=== PATIENT | female | born 1980 | race Caucasian/White ===

== ENCOUNTER 2017-02-11 03:15 | Emergency (ER) | payer OTHER ==
[2017-02-11] MEDS ORDERED: Sodium Chloride 0.9% 1,000 ML IV ONE (04:18)
[2017-02-11] MEDS ORDERED: Belladonna-Phenobarbital PO STA (04:18)
[2017-02-11] MEDS ORDERED: Belladonna-Phenobarbital ONE (04:24)
[2017-02-11 04:27] LABS: BASO % 0.3 % (0.0-2.0); EOS # 0.1 K/uL (0.0-0.7); EOS % 1.2 % (0.0-4.0); HEMATOCRIT 38.9 % (34.0-47.0); LYMPH # 2.4 K/uL (1.0-4.3); LYMPH % 29.7 % (20.0-40.0); MEAN CELL VOLUME 88.9 fL (81.0-99.0); MEAN CORPUSCULAR HEMOGLOBIN 30.1 pg (27.0-31.0); MEAN CORPUSCULAR HGB CONC 33.8 g/dL (33.0-37.0); MEAN PLATELET VOLUME 10.1 fL (7.2-11.7); MONO # 0.6 K/uL (0.0-0.8); RED CELL DISTRIBUTION WIDTH 13.8 % (11.5-14.5); WHITE BLOOD COUNT 7.9 K/uL (4.8-10.8)
[2017-02-11 04:35] LABS: CHLORIDE 101 mmol/L (98-107); SODIUM 138 mmol/L (132-148)
[2017-02-11 04:36] LABS: POTASSIUM 3.6 mmol/L (3.6-5.2)
[2017-02-11 04:37] LABS: GFR AFRICAN-AMERICAN > 60
[2017-02-11 04:38] LABS: ALB/GLOB RATIO 1.2 (1.0-2.1); ALKALINE PHOSPHATASE 53 U/L (38-126); ALT/SGPT 24 U/L (9-52); AST/SGOT 19 U/L (14-36); BILIRUBIN,TOTAL 0.6 mg/dL (0.2-1.3); BLOOD UREA NITROGEN 14 mg/dL (7-17); CALCIUM 9.1 mg/dl (8.6-10.4); CARBON DIOXIDE 26 mmol/L (22-30); GLUCOSE,RANDOM 93 mg/dL (65-105); TOTAL PROTEIN 7.5 g/dL (6.3-8.3)
[2017-02-11 04:45] LABS: RBC URINE 7 /hpf (0-3); URINE BILIRUBIN NEGATIVE (NEGATIVE); URINE BLOOD 1+ (NEGATIVE); URINE COLOR Yellow (YELLOW); URINE GLUCOSE (UA) NORMAL (Normal); URINE KETONE NEGATIVE (NEGATIVE); URINE LEUKOCYTE ESTERASE NEG Leu/uL (Negative); URINE PROTEIN NEGATIVE (NEGATIVE); URINE UROBILINOGEN NORMAL mg/dL (0.2-1.0); WBC URINE 2 /hpf (0-5)
--- NOTE | 2017-02-11 05:02 | C.PDOC ---
History Of Present Illness 36 year old female presents to the ED with complaints of epigastric pain since 10 pm that became diffuse "crampy" pain with associated nausea and one episode of vomiting after eating shrimp at dinner today. Patient reports nausea and acidic taste to mouth . She denies any dysuria, hematuria, diarrhea, fever or recent trave/sick contact. Time Seen by Provider: 02/11/17 03:57 Chief Complaint (Nursing): Abdominal Pain History Per: Patient History/Exam Limitations: no limitations Onset/Duration Of Symptoms: Hrs Current Symptoms Are (Timing): Still Present Context: Food (patient states symptoms began after eating shrimp earlier in the day ) Location Of Pain/Discomfort: Diffuse, Epigastric Radiation Of Pain To:: Back Quality Of Discomfort: Cramping (abdominal pain began diffuse "crampy" pain) Associated Symptoms: Vomiting. denies: Fever, Chills, Nausea, Diarrhea Exacerbating Factors: Food Alleviating Factors: None Recent travel outside of the [place]: No Abnormal Vaginal Bleeding: No Past Medical History Reviewed: Historical Data, Nursing Documentation, Vital Signs Vital Signs: Last Vital Signs Temp 98.4 F 02/11/17 05:48 Pulse 60 02/11/17 05:48 Resp 20 02/11/17 05:48 BP 110/74 02/11/17 05:48 Pulse Ox 99 02/11/17 06:10 - Medical History PMH: No Chronic Diseases Family History: States: Unknown Family Hx - Social History Hx Alcohol Use: Yes Hx Substance Use: No - Immunization History Hx Tetanus Toxoid Vaccination: No Hx Influenza Vaccination: No Hx Pneumococcal Vaccination: No Review Of Systems Constitutional: Negative for: Fever Cardiovascular: Positive for: Other ("Acid taste" to chest ) Gastrointestinal: Positive for: Vomiting (1 episode ), Abdominal Pain (diffuse) . Negative for: Nausea Genitourinary: Negative for: Dysuria, Hematuria Musculoskeletal: Negative for: Back Pain Physical Exam - Physical Exam Appears: Non-toxic, No Acute Distress Skin: Warm, Dry Eye(s): bilateral: Normal Inspection, PERRL, EOMI Oral Mucosa: Moist Neck: Normal ROM, Supple Cardiovascular: Rhythm Regular Respiratory: Normal Breath Sounds, No Wheezing Gastrointestinal/Abdominal: Bowel Sounds (normal), Soft, Tenderness (epigastric tenderness, no RLQ tenderness), No Distention, No Guarding, No Rebound Back: Normal Inspection, No CVA Tenderness Extremity: Normal ROM Neurological/Psych: Oriented x3 ED Course And Treatment - Laboratory Results Result Diagrams: 02/11/17 04:24 02/11/17 04:24 O2 Sat by Pulse Oximetry: 99 (room air ) Pulse Ox Interpretation: Normal Progress Note: Upon re-evaluation patient is sleeping comfortable in bed. When questioning patient reports persistent pain. Toradol IV and Maalox ordered. 0630: Pt reports improved pain, labs reviewed and d/w pt who was instructed to have a BRAT diet and fluids and return precautions were doiscussed. Pt agrees with plan and expressed understanding of all instructions. Reevaluation Time: 06:29 Reassessment Condition: Improved Medical Decision Making Medical Decision Making: Patient given Ondansetron, Toradol, Famotidine, Atropine/ Hyoscyamine, and Maalox for pain. Disposition Counseled Patient/Family Regarding: Diagnosis, Need For Followup, Rx Given - Disposition Disposition: HOME/ ROUTINE Disposition Time: 06:29 Condition: STABLE Additional Instructions: Laura mucho liquido Laura las medicinas por dolor Regresa si peor Prescriptions: Aluminum Hydroxide/Magnesium H [Maalox 30 ml] 30 ml PO TID #100 ml Famotidine [Pepcid] 20 mg PO DAILY #20 tab Instructions: Gastritis (ED) Print Language: BOLIVIAN - Clinical Impression Clinical Impression: Epigastric abdominal pain - Scribe Statement The provider has reviewed the documentation as recorded by the Scribe Sweta Hebert All medical record entries made by the Scribe were at my direction and personally dictated by me. I have reviewed the chart and agree that the record accurately reflects my personal performance of the history, physical exam, medical decision making, and the department course for this patient. I have also personally directed, reviewed, and agree with the discharge instructions and disposition.
[2017-02-11] MEDS ORDERED: Aluminum Hydroxide/Magnesium Hydroxide Susp (30 mL) PO STA (05:08)
[2017-02-11] MEDS ORDERED: Aluminum Hydroxide/Magnesium Hydroxide Susp (30 mL) ONE (05:13)
[2017-02-11 05:49] VITALS: BP 110/74; PULSE 60; RESP 20; TEMP 98.4
[2017-02-11 06:03] VITALS: O2SAT 99
== END 2017-02-11 06:47 | disposition home or self-care (01) ==
LOC: C.ER 03:15
DX: R10.13 Epigastric pain (principal)
CPT/HCPCS: 80053; 81001; 83690; 84703; 85025; 96361; 96374; 96375; 99284; J1885; J2405; J7040

== ENCOUNTER 2017-11-08 13:27 | Emergency (ER) | payer OTHER ==
[2017-11-08 13:40] VITALS: BMI 29.2
[2017-11-08 13:44] VITALS: O2SAT 96
[2017-11-08 14:32] LABS: INFLUENZA A B NEGATIVE FOR FLU A/B (NEGATIVE)
--- NOTE | 2017-11-08 15:01 | C.PDOC ---
History Of Present Illness 36 y/o female presents to the ER complaining of headache, fever, chills,throat pain, and body aches which have been present for the past 2 days. Patient states that the throat pain radiates to her bilateral ears. Patient denies having abdominal pain, nausea, vomiting, and diarrhea. Time Seen by Provider: 11/08/17 13:54 Chief Complaint (Nursing): Fever History Per: Patient History/Exam Limitations: no limitations Onset/Duration Of Symptoms: Days Current Symptoms Are (Timing): Still Present Severity: Moderate Past Medical History Reviewed: Historical Data, Nursing Documentation, Vital Signs Vital Signs: Last Vital Signs Temp 98.9 F 11/08/17 15:37 Pulse 74 11/08/17 15:37 Resp 20 11/08/17 15:37 BP 111/65 11/08/17 15:37 Pulse Ox 96 11/08/17 15:37 - Medical History PMH: No Chronic Diseases Other Surgeries: Hx of surgeries Family History: States: No Known Family Hx - Social History Hx Alcohol Use: No Hx Substance Use: No - Immunization History Hx Tetanus Toxoid Vaccination: No Hx Influenza Vaccination: No Hx Pneumococcal Vaccination: No Review Of Systems Except As Marked, All Systems Reviewed And Found Negative. Constitutional: Positive for: Fever, Malaise. Negative for: Chills ENT: Positive for: Throat Pain Neurological: Positive for: Headache Physical Exam - Physical Exam Appears: Non-toxic, Other (uncomfortable) Skin: Normal Color, Warm, Dry Head: Atraumatic, Normacephalic Eye(s): bilateral: Normal Inspection Ear(s): Bilateral: Normal Nose: Normal Oral Mucosa: Moist Neck: Supple Chest: Symmetrical Cardiovascular: Rhythm Regular Respiratory: Normal Breath Sounds, No Rales, No Rhonchi, No Wheezing Extremity: Normal ROM Neurological/Psych: Oriented x3, Normal Speech, Normal Motor, Normal Sensation ED Course And Treatment O2 Sat by Pulse Oximetry: 96 (RA) Pulse Ox Interpretation: Normal Progress Note: Flu Swab and Rapid Strep ordered. Patient given Toradol IM. Disposition - Disposition Disposition: HOME/ ROUTINE Disposition Time: 14:50 Condition: STABLE Additional Instructions: Follow up with your PMD within 1-2 days. Return to Ed if feel worse. Prescriptions: Ibuprofen [Motrin Tab] 600 mg PO Q8 #30 tab Oseltamivir [Tamiflu] 75 mg PO BID #10 cap Instructions: Viral Syndrome (DC) Forms: [employer] (Divehi) - Clinical Impression Clinical Impression: Influenza-like illness - PA / [facility]YCHI[facility]RIC NURSE / Resident Statement MD/DO has reviewed & agrees with the documentation as recorded. - Scribe Statement The provider has reviewed the documentation as recorded by the Scribe Agnieszka Sequeira Provider Attestation All medical record entries made by the Scribe were at my direction and personally dictated by me. I have reviewed the chart and agree that the record accurately reflects my personal performance of the history, physical exam, medical decision making, and the department course for this patient. I have also personally directed, reviewed, and agree with the discharge instructions and disposition.
[2017-11-08 15:38] VITALS: BP 111/65; PULSE 74; RESP 20; TEMP 98.9
== END 2017-11-08 15:38 | disposition home or self-care (01) ==
LOC: C.ER 13:27
DX: J11.1 Influenza due to unidentified influenza virus with other respiratory manifestations (principal)
CPT/HCPCS: 87070; 87430; 87804; 96372; 99283; J1885

== ENCOUNTER 2018-04-15 20:11 | Emergency (ER) | payer OTHER ==
[2018-04-15 20:12] VITALS: BMI 29.2
[2018-04-15 20:33] VITALS: O2SAT 100
[2018-04-15] MEDS ORDERED: Sodium Chloride 0.9% 1,000 ML IV ONE (21:10)
--- NOTE | 2018-04-15 21:11 | C.PDOC ---
History Of Present Illness 37 year old female presents to the ED c/o abdominal pain associated with nausea , vomit, hematuria and dysuria that started yesterday. Patient states she has not been able to tolerate PO intake. Patient denies fever, chills, diarrhea, back pain, weakness, numbness. Time Seen by Provider: 04/15/18 21:10 Chief Complaint (Nursing): Abdominal Pain History Per: Patient History/Exam Limitations: no limitations Onset/Duration Of Symptoms: Days (1) Current Symptoms Are (Timing): Still Present Pain Scale Rating Of: 5 Location Of Pain/Discomfort: Diffuse Radiation Of Pain To:: None Quality Of Discomfort: Sharp, Stabbing Associated Symptoms: Nausea, Vomiting, Urinary Symptoms Alleviating Factors: None Recent travel outside of the [place]: No Additional History Per: Patient Abnormal Vaginal Bleeding: No Past Medical History Reviewed: Historical Data, Nursing Documentation, Vital Signs Vital Signs: Last Vital Signs Temp 98.3 F 04/15/18 22:48 Pulse 57 L 04/15/18 22:48 Resp 13 04/15/18 22:48 BP 116/80 04/15/18 22:48 Pulse Ox 100 04/15/18 22:48 - Medical History PMH: No Chronic Diseases Surgical History: No Surg Hx Family History: States: Unknown Family Hx - Social History Hx Alcohol Use: No Hx Substance Use: No - Immunization History Hx Tetanus Toxoid Vaccination: No Hx Influenza Vaccination: No Hx Pneumococcal Vaccination: No Review Of Systems Constitutional: Negative for: Fever, Chills Cardiovascular: Negative for: Chest Pain Respiratory: Negative for: Cough, Shortness of Breath Gastrointestinal: Positive for: Nausea, Vomiting, Abdominal Pain. Negative for : Diarrhea Genitourinary: Positive for: Dysuria, Hematuria Musculoskeletal: Negative for: Back Pain Skin: Negative for: Rash Neurological: Negative for: Weakness, Numbness Physical Exam - Physical Exam Appears: Non-toxic, No Acute Distress Skin: Warm, Dry Head: Normacephalic Eye(s): bilateral: Normal Inspection Oral Mucosa: Moist Neck: Supple Chest: Symmetrical Cardiovascular: Rhythm Regular Respiratory: No Rales, No Rhonchi, No Wheezing Gastrointestinal/Abdominal: Soft, Tenderness (diffuse), No Guarding, No Rebound Back: Normal Inspection Extremity: No Tenderness, No Swelling Extremity: Bilateral: Atraumatic, Normal Color And Temperature, Normal ROM Neurological/Psych: Oriented x3, Normal Speech Gait: Steady ED Course And Treatment - Laboratory Results Result Diagrams: 04/15/18 21:22 04/15/18 21:22 O2 Sat by Pulse Oximetry: 100 (ON RA) Pulse Ox Interpretation: Normal Progress Note: Plan: - CT abd/pelvis. - Labs. - Morphine 2 mg IVP. - Pepcid 20 mg IVP. - IV fluids. - Zofran 4 mg IVP. - UA Reevaluation Time: 01:02 Reassessment Condition: Improved Disposition Counseled Patient/Family Regarding: Studies Performed, Diagnosis, Need For Followup, Rx Given - Disposition Referrals: [facility] [Outside] [facility] [Outside] Disposition: HOME/ ROUTINE Disposition Time: 21:10 Condition: FAIR Additional Instructions: Please return if symptoms recur Prescriptions: Levofloxacin [Levaquin] 500 mg PO DAILY #7 tablet traMADol [Ultram] 50 mg PO TID PRN #15 tab PRN Reason: Pain, Severe (8-10) Instructions: Urinary Tract Infection, Adult (DC), Kidney Stones (DC) Forms: [employer] (Khmer) Print Language: BURUNDIAN - Clinical Impression Clinical Impression: Abdominal pain, Pyelonephritis, Renal colic - Scribe Statement The provider has reviewed the documentation as recorded by the Scribe Yfn Rodriguez All medical record entries made by the Scribe were at my direction and personally dictated by me. I have reviewed the chart and agree that the record accurately reflects my personal performance of the history, physical exam, medical decision making, and the department course for this patient. I have also personally directed, reviewed, and agree with the discharge instructions and disposition.
[2018-04-15] MEDS ORDERED: Sodium Chloride 0.9% 1,000 ML ONE (21:26)
[2018-04-15 21:27] LABS: BASO # 0.1 K/uL (0.0-0.2); BASO % 0.4 % (0.0-2.0); EOS % 0.3 % (0.0-4.0); HEMOGLOBIN 13.3 g/dL (11.0-16.0); LYMPH # 2.5 K/uL (1.0-4.3); LYMPH % 17.6 % (20.0-40.0); MEAN CORPUSCULAR HEMOGLOBIN 29.1 pg (27.0-31.0); MEAN CORPUSCULAR HGB CONC 34.3 g/dL (33.0-37.0); MEAN PLATELET VOLUME 9.1 fL (7.2-11.7); MONO # 0.8 K/uL (0.0-0.8); MONO % 5.4 % (0.0-10.0); NEUT # 10.7 K/uL (1.8-7.0); NEUT % 76.3 % (50.0-75.0); RBC 4.57 Mil/uL (3.80-5.20); RED CELL DISTRIBUTION WIDTH 15.2 % (11.5-14.5)
[2018-04-15 21:31] LABS: MEAN CELL VOLUME 84.9 fL (81.0-99.0)
[2018-04-15 21:32] LABS: HCG,QUALITATIVE URINE NEGATIVE (NEGATIVE)
[2018-04-15] MEDS ORDERED: cefTRIAXone IV 1 gm in Dextros 50 ML IVPB ONE (21:35)
[2018-04-15 21:36] LABS: INR 1.2; PROTHROMBIN TIME 12.6 SECONDS (9.7-12.2)
[2018-04-15 21:41] LABS: URINE BACTERIA OCC (<OCC); URINE BILIRUBIN NEGATIVE (NEGATIVE); URINE BLOOD 3+ (NEGATIVE); URINE CLARITY Hazy (Clear); URINE COLOR Amber (YELLOW); URINE GLUCOSE (UA) NORMAL (Normal); URINE LEUKOCYTE ESTERASE 3+ Leu/uL (Negative); URINE PROTEIN 2+ mg/dL (NEGATIVE); URINE UROBILINOGEN NORMAL mg/dL (0.2-1.0); WBC CLUMPS MANY /hpf
[2018-04-15 21:53] LABS: ALB/GLOB RATIO 1.6 (1.0-2.1); ALBUMIN 5.1 g/dL (3.5-5.0); ALT/SGPT 19 U/L (9-52); AST/SGOT 25 U/L (14-36); BLOOD UREA NITROGEN 13 mg/dL (7-17); CALCIUM 9.7 mg/dl (8.6-10.4); GFR NON-AFRICAN AMERICAN > 60; LIPASE 46 U/L (23-300)
[2018-04-15] MEDS ORDERED: Iodixanol 320 MG/ML 100 ML BOTTLE IV ONE (21:54)
[2018-04-15] MEDS ORDERED: cefTRIAXone 1 gm 1 GM/100 ML BAG IVPB ONE (21:55)
[2018-04-16 01:23] VITALS: BP 113/76; PULSE 56; RESP 20; TEMP 98.8
--- NOTE | 2018-04-16 13:34 | CT ---
Date of service: 04/15/2018 PROCEDURE: CT Abdomen and Pelvis with contrast HISTORY: pyelo, hematuria, abd pain COMPARISON: None. TECHNIQUE: Contrast dose: 100 mL Visipaque 320 Radiation dose: Total exam DLP = 593.53 mGy-cm. This CT exam was performed using one or more of the following dose reduction techniques: Automated exposure control, adjustment of the mA and/or kV according to patient size, and/or use of iterative reconstruction technique. FINDINGS: LOWER THORAX: Unremarkable. LIVER: Unremarkable. No gross lesion or ductal dilatation. GALLBLADDER AND BILE DUCTS: Unremarkable. PANCREAS: Unremarkable. No gross lesion or ductal dilatation. SPLEEN: Unremarkable. ADRENALS: Unremarkable. No mass. KIDNEYS AND URETERS: Unremarkable. No hydronephrosis. No solid mass. VASCULATURE: Unremarkable. No aortic aneurysm. BOWEL: Unremarkable. No obstruction. No gross mural thickening. APPENDIX: Normal appendix. PERITONEUM: Unremarkable. No free fluid. No free air. LYMPH NODES: Unremarkable. No enlarged lymph nodes. BLADDER: Unremarkable. REPRODUCTIVE: Mildly thickened endometrium common nonspecific. There is a 2 cm mildly irregular peripherally enhancing low-density structure within the right ovary likely representing a a rupture or involuting follicular cyst. BONES: No acute fracture. OTHER FINDINGS: None. IMPRESSION: No acute abnormality. Likely ruptured or involuting right ovarian follicular cyst. Mildly thickened endometrium. No other significant abnormality. The preliminary findings for this examination were reported by [employer] at 11:37 p.m. on 04/15/2018. There is concurrence of this report with the preliminary findings.
== END 2018-04-16 01:26 | disposition home or self-care (01) ==
LOC: C.ER 20:11
DX: N12 Tubulo-interstitial nephritis, not specified as acute or chronic (principal); N23 Unspecified renal colic
CPT/HCPCS: 74177; 80053; 81001; 83690; 84703; 85025; 85610; 85730; 96374; 96375; 99284; J0696; J1885; J2270; J2405; J7030; Q9967